=== PATIENT | male | born 1995 | race American Indian/Alaskan Native ===

== ENCOUNTER 2016-06-20 22:57 | Emergency (ER) | payer OTHER ==
[2016-06-20 23:10] VITALS: BP 144/86
[2016-06-21] MEDS ORDERED: TRIPLE ANTIBIOTIC TP ONE ×2 (00:50)
--- NOTE | 2016-06-21 00:53 | Emergency Department Report ---
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 c/o mild bleeding in the area. denies any difficulty moving his left thum or left index finger) Severity: mild Laceration Symptoms: Yes Pain (mild to the firts web space of left hand), No Foreign Body Sensation, No Numbness, No Weakness ED Review of Systems ROS: Stated complaint: HAND INJURY Other details as noted in HPI Comment: All other systems reviewed and negative Constitutional: denies: chills, fever Eyes: denies: eye pain, eye discharge, vision change ENT: denies: ear pain, throat pain Respiratory: denies: cough, shortness of breath, wheezing Cardiovascular: denies: chest pain, palpitations Endocrine: no symptoms reported Gastrointestinal: denies: abdominal pain, nausea, diarrhea Genitourinary: denies: urgency, dysuria Musculoskeletal: as per HPI, other (1.5 cm laceration to left 1st web space of left hand). denies: back pain, joint swelling, arthralgia Skin: denies: rash, lesions Neurological: denies: headache, weakness, paresthesias Psychiatric: denies: anxiety, depression Hematological/Lymphatic: denies: easy bleeding, easy bruising ED Past Medical Hx - Past Medical History Previous Medical History?: No - Surgical History Past Surgical History?: No - Family History Family history: no significant - Social History Smoking Status: Never Smoker Substance Use Type: Alcohol, Non Opiate Pain - Medications Home Medications: Home Medications Medication Instructions Recorded Confirmed Last Taken Type Sulfamethoxazole/Trimethoprim 1 each PO BID #14 tablet 06/21/16 Unknown Rx [Bactrim DS TAB] Laceration Physical Exam - Exam General: Vital signs noted. No distress. Alert and acting appropriately. Wound Length (cm): 2 (1.5 cm L x 0.1 cm D) Laceration Location: Upper Extremity (1st web space of left hand) Laceration Exam: Yes Normal Distal CMS, No Foreign Body, No Exposed Tendon, Vessel, or Nerve (full ROM at 1st finger and thumb with muscle strength of 5/5, NVI, no Tendon laceration ), No Tendon Injury ED Course Vital Signs 06/20/16 23:06 Temperature 98.9 F Pulse Rate 64 Respiratory 18 Rate Blood Pressure 144/86 Blood Pressure 144/86 [Left] O2 Sat by Pulse 100 Oximetry - Laceration /Wound Repair Left Hand Wound Location: upper extremity (1st web space of left hand) Wound Length (cm): 2 (1.5 cm L x 0.1cm D) Wound's Depth, Shape: superficial Wound Explored: clean Irrigated w/ Saline (ccs): 50 Betadine Prep?: Yes Anesthesia: 1% Lidocaine Wound Repaired With: sutures Suture Size/Type: 5:0, nylon Number of Sutures: 5 Sterile Dressing Applied?: Yes Critical care attestation.: If time is entered above; I have spent that time in minutes in the direct care of this critically ill patient, excluding procedure time. ED Disposition Clinical Impression: Laceration of left hand Qualifiers: Encounter type: initial encounter Qualified Code(s): S61.412A - Laceration without foreign body of left hand, initial encounter Disposition: DISCHARGED TO HOME OR SELFCARE Is pt being admited?: No Does the pt Need Aspirin: No Condition: Good Instructions: Suture Care (ED), Laceration (ED) Prescriptions: Sulfamethoxazole/Trimethoprim [Bactrim DS TAB] 1 each PO BID #14 tablet Referrals: PRIMARY CARE, [Primary Care Provider] - 3-5 Days Forms: Work/School Release Form(ED)
== END 2016-06-21 01:07 | disposition home or self-care (01) ==
LOC: ED 22:57
DX: S61.412A Laceration without foreign body of left hand, initial encounter (principal); W26.8XXA Contact with other sharp object(s), not elsewhere classified, initial encounter; Y93.89 Activity, other specified; Y92.89 Other specified places as the place of occurrence of the external cause; Y99.8 Other external cause status
CPT/HCPCS: A6250